=== PATIENT | male | born 1970 | race American Indian/Alaskan Native ===

== ENCOUNTER 2016-12-23 00:30 | Emergency (ER) | payer OTHER ==
[2016-12-23 00:49] VITALS: BP 134/79
[2016-12-23 01:16] LABS: Basophils % (Auto) 0.7 % (0.0-1.8); Eosinophils % (Auto) 1.6 % (0.0-4.3); Hematocrit 40.8 % (35.5-45.6); Hemoglobin 13.3 gm/dl (11.8-15.2); Mean Corpuscular HGB Conc 33 % (32-34); Mean Corpuscular Hemoglobin 30 pg (28-32); Mean Corpuscular Volume 93 fl (84-94); Platelet Count 172 K/mm3 (140-440); Red Blood Count 4.38 M/mm3 (3.65-5.03); Red Cell Distribution Width 13.3 % (13.2-15.2); White Blood Count 5.4 K/mm3 (4.5-11.0)
[2016-12-23 01:26] LABS: INR 1.05 (0.87-1.13)
[2016-12-23 01:27] LABS: Partial Thromboplastin Time 26.6 Sec. (24.2-36.6)
[2016-12-23 01:33] LABS: Anion Gap 19 mmol/L; BUN/Creatinine Ratio 14.61; Blood Urea Nitrogen 19 mg/dL (9-20); Calcium 9.4 mg/dL (8.4-10.2); Carbon Dioxide 22 mmol/L (22-30); Chloride 104.1 mmol/L (98-107); Glucose 108 mg/dL (75-100); Potassium 3.9 mmol/L (3.6-5.0); Sodium 141 mmol/L (137-145)
== END 2016-12-23 01:15 | disposition left against medical advice (07) ==
LOC: ED 00:30
DX: M54.9 Dorsalgia, unspecified (principal); I25.2 Old myocardial infarction; I10 Essential (primary) hypertension; V89.2XXA Person injured in unspecified motor-vehicle accident, traffic, initial encounter; Y93.89 Activity, other specified; Y99.9 Unspecified external cause status; Y92.410 Unspecified street and highway as the place of occurrence of the external cause; Z53.21 Procedure and treatment not carried out due to patient leaving prior to being seen by health care provider
CPT/HCPCS: 36415; 80048; 84484; 85025; 85610; 85730; 93005; 93010